=== PATIENT | male | born 1990 | race Caucasian/White ===

== ENCOUNTER 2017-03-21 00:05 | Emergency (ER) | payer BC ==
[~2017-03-21] VITALS: Ht 177.8 cm; Wt 111.1 kg
[~2017-03-21 00:05] MED LIST: UNOBMED
[2017-03-21] MEDS ORDERED: Tubing IV Cassette IV ONE (00:18)
[2017-03-21 00:59] LABS: BASOPHILS % (AUTO) 1.3 % (0.0-2.0); EOSINOPHILS % (AUTO) 3.4 % (0.0-3.0); LYMPHOCYTES % (AUTO) 53.9 % (20.0-45.0); MEAN CORPUSCULAR HEMOGLOBIN 28.7 PG (27.0-31.0); MEAN CORPUSCULAR HGB CONC 34.1 G/DL (32.0-36.0); MEAN CORPUSCULAR VOLUME 84 FL (80-99); MEAN PLATELET VOLUME 6.3 FL (6.5-10.1); MONOCYTES % (AUTO) 5.4 % (1.0-10.0); PLATELET COUNT 324 K/UL (150-450); RED BLOOD COUNT 5.44 M/UL (4.70-6.10); RED CELL DISTRIBUTION WIDTH 11.5 % (11.6-14.8); WHITE BLOOD COUNT 9.2 K/UL (4.8-10.8)
--- NOTE | 2017-03-21 01:04 | Emergency Room Report ---
History of Present Illness General Chief Complaint: Alcohol Intoxication Source: Patient, EMS Present Illness HPI [id number] BIBEMS For suspected ETOH intoxication. Was allegedly "partying on the lawn with a bunch of friends drinking." Possible also "smoked something." Atraumatic. Patient yelling and screaming in the ED. Not providing HPI. Covered in vomit. EMS transported head down. Gave zofran IV. Allergies: Coded Allergies: UNABLE TO ASSESS (Unverified , 03/21/17) Patient History Past Medical History: none, unable to obtain Past Surgical History: none, unable to obtain Pertinent Family History: none, unable to obtain Social History: Denies: alcohol use, drug use, smoking Immunizations: UTD Reviewed Nursing Documentation: PMH: Agreed, PSxH: Agreed Nursing Documentation-PMH Past Medical History Deferred: Pt Cognitively Impaired Review of Systems All Other Systems: limited - D/t intoxication Physical Exam Vital Signs Date Time Temp Pulse Resp B/P Pulse Ox O2 Delivery O2 Flow Rate FiO2 03/20/17 23:57 86 18 101/66 97 Room Air Sp02 EP Interpretation: reviewed, normal General Appearance: normal inspection, well appearing, non-toxic, mild distress , other - Covered in vomit Head: normocephalic, atraumatic Eyes: bilateral eye EOMI, bilateral eye PERRL ENT: normal ENT inspection, hearing grossly normal, normal voice Neck: normal inspection, full range of motion, supple, no bony tend Respiratory: normal inspection, lungs clear, normal breath sounds, no respiratory distress, no retraction, no wheezing Cardiovascular #1: regular rate, rhythm, no edema Gastrointestinal: normal inspection, normal bowel sounds, non tender, soft, no guarding, no hernia Genitourinary: no CVA tenderness Musculoskeletal: normal inspection, back normal, normal range of motion, Lexi' s Sign negative Neurologic: normal inspection, alert, oriented x3, responsive, special crimes investigator III-XII nml as tested, motor strength/tone normal, speech normal Psychiatric: normal inspection, judgement/insight normal, mood/affect normal Skin: normal inspection, normal color, no rash Lymphatic: normal inspection Medical Decision Making Diagnostic Impression: Primary Impression: Acute alcoholic intoxication Qualified Codes: F10.120 - Alcohol abuse with intoxication, uncomplicated ER Course ETOH elevated Utox + for meth, patient endorses adderall Endorses drinking ETOH tonight Denies any pain by 322am, sober. Alert and oriented. I counseled patient on risks of binge/heavy ETOH consumption Patient verbalized understanding Has means to get home/taxi/wallet/phone Tolerating PO in the ED Ambulating with steady gait Last Vital Signs Date Time Temp Pulse Resp B/P Pulse Ox O2 Delivery O2 Flow Rate FiO2 03/20/17 23:57 86 18 101/66 97 Room Air Status: improved Disposition: HOME, SELF-CARE SUJEY NINO M.D. March 21, 2017 01:04
[2017-03-21 01:18] VITALS: BP 97/45
[2017-03-21 01:20] LABS: ALANINE AMINOTRANSFERASE 16 U/L (3-41); ANION GAP 20 (5-15); ASPARTATE AMINO TRANSFERASE 21 U/L (5-40); CALCIUM 9.1 mg/dL (8.6-10.2); CARBON DIOXIDE 22 mEQ/L (20-30); CHLORIDE 99 mEQ/L (98-107); CREATININE 0.8 mg/dL (0.7-1.2); GLOMERULAR FILTRATION RATE > 60 mL/min (>60); HEMOLYSIS 3; POTASSIUM 3.7 mEQ/L (3.4-4.9); SODIUM 141 mEQ/L (135-145); TOTAL PROTEIN 7.4 g/dL (6.6-8.7)
[2017-03-21 01:31] LABS: TROPONIN I < 0.30 ng/mL (<=0.30)
[2017-03-21 03:18] VITALS: BP 107/66
[2017-03-21 03:29] LABS: CKMB 2.1 ng/mL (< 6.7)
[2017-03-21 03:40] VITALS: BP 107/66
--- NOTE | 2017-03-21 11:44 | Diagnostic Imaging Report ---
Indication: Chest Pain Comparison: None A single view chest radiograph was obtained. Findings: Cardiomediastinal appearance is within normal limits for age. Pulmonary vascularity is appropriate. The diaphragmatic contour is smooth and costophrenic angles are sharp. No pleural effusions are identified. The bones are unremarkable. Impression: No acute findings
--- NOTE | 2017-03-23 14:48 | Cardiology Report ---
APPROVED REPORT EKG Measurement Heart [id number] Normal sinus rhythm with sinus arrhythmia Normal ECG
== END 2017-03-21 03:40 | disposition home or self-care (01) ==
LOC: EDBD 00:05 → EMR 00:30
DX: F10.129 Alcohol abuse with intoxication, unspecified (principal)
CPT/HCPCS: 36415; 71010; 80053; 80300; 82550; 82553; 84484; 85025; 93005; 96360; 96374; 99284; G0480; J2405; 80329